=== PATIENT | female | born 1995 | race Hispanic/Latino ===

== ENCOUNTER 2018-12-14 13:35 | Emergency (ER) | payer MEDICAID, OTHER ==
[~2018-12-14 13:35] MED LIST: PREN1TAB89 PO
[2018-12-14 14:57] LABS: RAPID GROUP A STREP NEGATIVE (NEGATIVE)
== END 2018-12-14 15:22 | disposition home or self-care (01) ==
LOC: EDH 13:35
DX: J30.9 Allergic rhinitis, unspecified (principal); H92.09 Otalgia, unspecified ear; M79.10 Myalgia, unspecified site; Z87.891 Personal history of nicotine dependence
CPT/HCPCS: 87804; 87880

== ENCOUNTER 2018-12-24 14:29 | Emergency (ER) | payer OTHER ==
[2018-12-24 15:05] LABS: BASOPHILS % (AUTO) 0.4 % (0.0-5.0); EOSINOPHILS % (AUTO) 13.9 % (0.0-8.0); LYMPHOCYTES % (AUTO) 23.6 % (21.0-51.0); MEAN CORPUSCULAR HEMOGLOBIN 29.9 pg (27.0-33.0); MEAN CORPUSCULAR VOLUME 85.5 fL (79-99); MONOCYTES % (AUTO) 4.8 % (3.0-13.0); NEUTROPHILS % (AUTO) 57.3 % (40.0-77.0); PLATELET COUNT (AUTO) 360 K/uL (130-400); RED BLOOD CELL COUNT(AUTO) 4.91 MIL/uL (4.00-5.50); RED CELL DISTRIBUTION WIDTH 12.9 % (11.0-15.5); WHITE BLOOD COUNT (AUTO) 8.9 K/uL (4.8-10.8)
[2018-12-24] MEDS ORDERED: ONDANSETRON HCL 4 MG/2 ML VIAL ONE (15:07)
[2018-12-24] MEDS ORDERED: SODIUM CHLORIDE 0.9% 1000ML 1,000 ML IV ONE (15:07)
[2018-12-24 15:12] LABS: APPEARANCE,URINE Clear (CLEAR); BILIRUBIN,URINE Negative (NEGATIVE); COLOR,URINE Yellow (YELLOW); GLUCOSE, URINE (UA) Negative (NEGATIVE); KETONES,URINE Negative (NEGATIVE); LEUKOCYTE ESTERASE ,URINE Negative (NEGATIVE); NITRATE,URINE Negative (NEGATIVE); OCCULT BLOOD,URINE Negative (NEGATIVE); PH,URINE >=9.0 (5.0-8.0); PROTEIN,URINE Negative (NEGATIVE)
[2018-12-24 15:16] LABS: HCG,QUAL RESULT NEGATIVE (NEGATIVE)
[2018-12-24] MEDS ORDERED: KETOROLAC TROMETHAMINE 15MG/ML ONE (15:24)
[2018-12-24 15:26] LABS: CREATININE 0.6 mg/dL (0.5-1.5); POTASSIUM 3.9 mmol/L (3.5-5.1)
[2018-12-24 15:30] LABS: ALBUMIN 3.9 g/dL (3.5-5.0); BILIRUBIN,TOTAL 1.3 mg/dL (0.2-1.0)
== END 2018-12-24 16:59 | disposition home or self-care (01) ==
LOC: EDH 14:29
DX: R10.2 Pelvic and perineal pain (principal)
CPT/HCPCS: 36415; 76856; 80053; 81003; 81025; 83690; 85025; 96374; 96375; 99285; J1885; J2405; J7030

== ENCOUNTER 2019-07-08 21:06 | Emergency (ER) | payer MEDICAID ==
[2019-07-08] MEDS ORDERED: PREDNISONE 20 MG TABLET ONE (21:18)
[2019-07-08] MEDS ORDERED: DIPHENHYDRAMINE HCL 25 MG CAPSULE ONE (21:18)
== END 2019-07-08 22:13 | disposition home or self-care (01) ==
LOC: EDH 21:06
DX: L50.0 Allergic urticaria (principal)
CPT/HCPCS: 99283; Q0163

== ENCOUNTER 2019-07-09 11:22 | Emergency (ER) | payer MEDICAID ==
[2019-07-09] MEDS ORDERED: METHYLPREDNISOLONE SOD SUCC 40MG/ML 1ML ONE (11:55)
[2019-07-09] MEDS ORDERED: DiphenhydrAMINE HCL 50 MG/ML VIAL ONE (11:55)
[2019-07-09] MEDS ORDERED: FAMOTIDINE/PF 20 MG/2 ML VIAL IV ONE (11:56)
== END 2019-07-09 12:34 | disposition home or self-care (01) ==
LOC: EDH 11:22
DX: L50.0 Allergic urticaria (principal)
CPT/HCPCS: 96372 ×2; 99284; J1200; J2920; J3490

== ENCOUNTER 2019-08-18 18:23 | Emergency (ER) | payer MEDICAID | END 2019-08-18 18:56 | disposition home or self-care (01) | LOC: EDH 18:23 | DX: S16.1XXA Strain of muscle, fascia and tendon at neck level, initial encounter (principal); V49.40XA Driver injured in collision with unspecified motor vehicles in traffic accident, initial encounter; Y93.89 Activity, other specified; Y92.89 Other specified places as the place of occurrence of the external cause; Y99.8 Other external cause status | CPT/HCPCS: 99281 ==

== ENCOUNTER 2019-09-08 20:47 | Emergency (ER) | payer MEDICAID ==
[2019-09-08] MEDS ORDERED: IBUPROFEN 400 MG TABLET ONE ×2 (21:03→21:04)
== END 2019-09-08 21:50 | disposition home or self-care (01) ==
LOC: EDH 20:47
DX: J11.1 Influenza due to unidentified influenza virus with other respiratory manifestations (principal)

== ENCOUNTER 2019-10-22 21:10 | Emergency (ER) | payer MEDICAID | END 2019-10-22 21:45 | disposition home or self-care (01) | LOC: EDH 21:10 | DX: J11.1 Influenza due to unidentified influenza virus with other respiratory manifestations (principal) ==

== ENCOUNTER 2020-01-30 00:17 | Emergency (ER) | payer MEDICAID ==
[2020-01-30] MEDS ORDERED: ACETAMINOPHEN EXTRA STRENGTH 500 MG TABLET ONE (00:44)
[2020-01-30] MEDS ORDERED: BENZONATATE 100 MG CAPSULE PO ONE (00:44)
== END 2020-01-30 01:06 | disposition home or self-care (01) ==
LOC: EDH 00:17
DX: U07.1 COVID-19 (principal); B34.9 Viral infection, unspecified
CPT/HCPCS: 36415; 87633; 87804 ×2; 99283; U0003

== ENCOUNTER 2020-09-12 04:41 | Emergency (ER) | payer MEDICAID ==
[2020-09-12] MEDS ORDERED: SODIUM CHLORIDE 0.9% 500ML 500 ML IV ONE (05:25)
[2020-09-12 05:30] LABS: RAPID GROUP A STREP NEGATIVE (NEGATIVE)
== END 2020-09-12 06:33 | disposition home or self-care (01) ==
LOC: EDH 04:41
DX: G93.3 Postviral and related fatigue syndromes (principal); J06.9 Acute upper respiratory infection, unspecified
CPT/HCPCS: 87804 ×2; 87880; 99283; J7040